=== PATIENT | female | born 1935 | race African-American/Black ===

== ENCOUNTER → 2017-06-15 | Outpatient (CLI) | payer OTHER ==
[~2017-06-15] MED LIST: AIRBORNE TABLE1 EAC1 PO; ALPHAGAN P100 DROP/5 LEFT EYE; ALPRAZOLAM0.25 M2 PO; AMBIEN5 MG PO; AMLODIPINE BES2.5 MG PO; AMLODIPINE BESYL5 MG PO; APRESOLINE25 MG PO; ASPIR 8181 M1 PO; ATENOLOL25 MG PO; ATENOLOL50 MG PO; AVAPRO150 MG PO; CENTRUM SILVER1 EAC3 PO; CITALOPRAM HBR10 MG PO; COD LIVER OIL1 EACH PO; DOXAZOSIN MESYLA2 MG PO; DOXAZOSIN MESYLA4 MG PO; FISH OIL500 MG PO; GINGER250 MG PO; HYDRALAZINE HCL50 MG PO; HYGROTON25 MG PO; KEFLEX500 MG PO; LEVOTHYROXINE125 MCG PO; LORAZEPAM0.5 MG PO; LOSARTAN POTAS100 MG PO; MELATONIN1 MG PO; NAPROSYN500 MG PO; NORCO 5/3251 TABLET PO; NORVASC10 MG PO; ODOR FREE GARL1 EAC1 PO; PRAVASTATIN SOD40 MG PO; PROBIOTIC1 EAC1 PO; SERTRALINE HCL25 MG PO; SYNTHROID112 MCG PO; TOPROL XL50 MG PO; VALIUM5 MG PO; VITAMIN D31000 UNIT PO; XALATAN2.5 ML RIGHT EYE; XANAX0.25 MG PO; ZOLPIDEM TARTRAT5 MG PO
[2017-06-15 17:10] LABS: RED CELL AREA COUNTED 0.4; RED CELL COUNT 3425 /MM^3 (0-1); RED CELL DILUTION 1; WBC AREA COUNTED 0.4; WBC DILUTION 1
[2017-06-15 17:11] LABS: CSF EOSINOPHILS 0 % (0-25); MONO RAW COUNT 1
[2017-06-15 17:33] LABS: MONONUCLEAR WBC'S 2 % (50-90); POLY RAW COUNT 49; POLYNUCLEAR WBC'S 98 % (0-3)
[2017-06-15 17:34] LABS: WHITE CELL COUNT 75 /MM^3 (0-5); WHITE CELL RAW COUNT 3
[2017-06-15 17:35] LABS: CSF TUBE NUMBER (RECHECK) TUBE #1
[2017-06-15 17:36] LABS: RED CELL AREA COUNTED 0.4; RED CELL COUNT (RECHECK) 250 /MM^3 (0-1); RED CELL DILUTION 1
== END | disposition home or self-care (01) ==
LOC: RAD 14:50
PROVIDERS: Internal Medicine Hematology & Oncology
PROC: 009U3ZZ Drainage of Spinal Canal, Percutaneous Approach (ICD-10-PCS; principal; 2017-06-15)
DX: D86.9 Sarcoidosis, unspecified (principal); Z79.52 Long term (current) use of systemic steroids; C91.11 Chronic lymphocytic leukemia of B-cell type in remission
CPT/HCPCS: 62270; 77002; 82945; 84157; 87070; 87102; 87205; 87899; 89051